=== PATIENT | female | born 1955 | race Caucasian/White ===

== ENCOUNTER → 2016-11-30 | Outpatient (REF) | payer BC ==
[~2016-11-30] MED LIST: ASPI81TA85 PO; CIPR-249 PO; CO Q30CA PO; COEN200C PO; DOCU10CA PO; FISH1000 PO; FLAX1200 PO; FLON0.054; FRUICAP PO; GLUC500C5 PO; HAIRTAB5 PO; META28.35 PO; MULTCAP PO; PERC5TAB12 PO; PROBCAP4 PO; RANI15TA PO; VAGI10TA PV; [UNRECOGNIZED DRUG - CODE] PO
== END ==
LOC: M LAB REF 12:19
PROVIDERS: ATTEND Internal Medicine
DX: E06.9 Thyroiditis, unspecified (principal)

== ENCOUNTER → 2016-12-06 | Outpatient (CLI) | payer BC ==
--- NOTE | 2016-12-07 15:31 | REP ---
NUCLEAR THYROID UPTAKE AND SCAN, 12/07/2016. Clinical history: Abnormal thyroid lab work. Hyperthyroid symptoms. History of thyroiditis in 2004. Comparison study 03/26 2005. Technique: The patient received 382 microcuries of I-123 as sodium iodide. 24 uptake values and scan were then performed. Findings: Activity of uptake is no different than the background activity on this scan. The 24 hour uptake measurement is 0.24%. Normal uptake values for 24 hours are 25 - 35%. Impression: 1. There is no uptake of iodine in the thyroid bed on either side. The appearance is nearly identical to the exam in 2005. That study also showed background and thyroid uptake without difference in appearance. In the absence of history of thyroidectomy, burned out thyroiditis must be suspected. 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 Signed by Derrell Berg MD 12/07/2016 07:06 P
== END ==
LOC: M RAD 12:35
PROVIDERS: ATTEND Internal Medicine
DX: E05.90 Thyrotoxicosis, unspecified without thyrotoxic crisis or storm (principal)

== ENCOUNTER → 2016-12-13 | Outpatient (REF) | payer BC ==
[2016-12-13 14:30] LABS: THYROID PEROXIDASE ANTIBODY < 28.0 U/ML (<60.0)
== END ==
LOC: M LAB REF 13:27
PROVIDERS: ATTEND Internal Medicine
DX: E05.90 Thyrotoxicosis, unspecified without thyrotoxic crisis or storm (principal); E06.9 Thyroiditis, unspecified

== ENCOUNTER → 2016-12-21 | Outpatient (REF) | payer BC | LOC: M LAB REF 13:32 | PROVIDERS: ATTEND Internal Medicine | DX: E05.90 Thyrotoxicosis, unspecified without thyrotoxic crisis or storm (principal) ==

== ENCOUNTER → 2017-02-01 | Outpatient (REF) | payer BC ==
[2017-02-01 16:51] LABS: FREE T4 0.77 NG/DL (0.76-1.46)
== END ==
LOC: M LABDRAW1 14:17
PROVIDERS: ATTEND Internal Medicine Endocrinology, Diabetes & Metabolism
DX: E06.1 Subacute thyroiditis (principal)

== ENCOUNTER → 2017-03-17 | Outpatient (REF) | payer BC ==
[2017-03-17 12:17] LABS: FREE T4 0.78 NG/DL (0.76-1.46)
== END ==
LOC: M LABDRAW1 10:09
PROVIDERS: ATTEND Internal Medicine Endocrinology, Diabetes & Metabolism
DX: E06.1 Subacute thyroiditis (principal)

== ENCOUNTER → 2017-03-18 | Outpatient (REF) | payer BC | LOC: M LAB REF 16:09 | PROVIDERS: ATTEND Physician Assistant | DX: R30.0 Dysuria (principal) ==

== ENCOUNTER → 2017-03-30 | Outpatient (REF) | payer BC ==
[2017-03-30 13:52] LABS: MICROSCOPIC EXAM PERFORMED; SQUAMOUS EPITHELIAL CELL URINE SMALL AMOUNT /hpf (SMALL AMT); WBC, URINE TNTC /hpf (0-3)
[2017-03-30 13:53] LABS: BACTERIA, URINE SMALL AMOUNT; HYALINE CAST, URINE NONE SEEN /lpf (0-1)
== END ==
LOC: M LAB REF 12:57
PROVIDERS: ATTEND Nurse Practitioner Adult Health
DX: N39.0 Urinary tract infection, site not specified (principal)

== ENCOUNTER → 2017-05-19 | Outpatient (REF) | payer BC ==
[2017-05-19 21:01] LABS: FREE T4 0.77 NG/DL (0.76-1.46)
== END ==
LOC: M LABDRAW1 18:42
DX: E06.1 Subacute thyroiditis (principal)
CPT/HCPCS: 84443

== ENCOUNTER → 2017-09-17 | Outpatient (REF) | payer BC | LOC: M LAB REF 13:35 | DX: R30.0 Dysuria (principal) | CPT/HCPCS: 87186 ==

== ENCOUNTER → 2017-09-26 | Outpatient (REF) | payer BC ==
[2017-09-26 18:58] LABS: FREE T4 0.76 NG/DL (0.76-1.46)
== END ==
LOC: M LABDRAW1 17:57
DX: E05.90 Thyrotoxicosis, unspecified without thyrotoxic crisis or storm (principal)
CPT/HCPCS: 84443

== ENCOUNTER → 2017-11-28 | Outpatient (REF) | payer BC ==
[2017-11-28 11:57] LABS: HEMATOCRIT 39.4 % (36.0-47.0); HEMOGLOBIN 12.9 g/dl (12.0-15.5); MEAN CORPUSCULAR HEMOGLOBIN 29.6 pg (27.0-33.0); MEAN CORPUSCULAR HGB CONC 32.7 g/dl (32.0-36.5); MEAN CORPUSCULAR VOLUME 90.4 fl (80.0-96.0); PLATELET COUNT, AUTOMATED 267 10^3/uL (150-450); RED BLOOD COUNT 4.36 10^6/uL (4.00-5.40); RED CELL DISTRIBUTION WIDTH 12.1 % (11.5-14.5); WHITE BLOOD COUNT 4.6 10^3/uL (4.0-10.0)
[2017-11-28 12:32] LABS: ANION GAP 6 MEQ/L (8-16); BLOOD UREA NITROGEN 14 MG/DL (7-18); CALCIUM LEVEL 9.4 MG/DL (8.8-10.2); CARBON DIOXIDE LEVEL 30 MEQ/L (21-32); CHLORIDE LEVEL 108 MEQ/L (98-107); CHOLESTEROL LEVEL 194 MG/DL (<200); CHOLESTEROL RISK RATIO 2.771 (<5); CREATININE FOR GFR 0.79 MG/DL (0.55-1.30); FREE T4 0.73 NG/DL (0.76-1.46); GLOMERULAR FILTRATION RATE > 60.0 (>45); GLUCOSE, FASTING 80 MG/DL (70-100); HDL CHOLESTEROL 70 MG/DL (>40); LDL CHOLESTEROL 104.8 MG/DL (<100); NON-HDL-C 124 MG/DL; POTASSIUM SERUM 4.5 MEQ/L (3.5-5.1); SODIUM LEVEL 144 MEQ/L (136-145); TRIGLYCERIDES LEVEL 96 MG/DL (<150)
== END ==
LOC: M LABDRAW1 11:42
DX: E05.90 Thyrotoxicosis, unspecified without thyrotoxic crisis or storm (principal); E78.1 Pure hyperglyceridemia
CPT/HCPCS: 84443

== ENCOUNTER → 2018-02-17 | Outpatient (REF) | payer BC ==
[2018-02-17 17:53] LABS: FREE T4 0.87 NG/DL (0.76-1.46)
== END ==
LOC: M LABDRAW1 16:58
DX: E06.9 Thyroiditis, unspecified (principal)
CPT/HCPCS: 84443

== ENCOUNTER → 2018-03-06 | Outpatient (REF) | payer BC | LOC: M LAB REF 03-07 18:40 | DX: N39.0 Urinary tract infection, site not specified (principal) ==

== ENCOUNTER → 2018-06-01 | Outpatient (REF) | payer BC ==
[2018-06-01 14:12] LABS: FREE T4 0.78 NG/DL (0.76-1.46); THYROID STIMULATING HORMONE 2.42 uIU/ML (0.358-3.740)
== END ==
LOC: M LABDRAW1 13:15
PROVIDERS: ATTEND Internal Medicine
DX: R63.4 Abnormal weight loss (principal)

== ENCOUNTER 2018-08-31 07:22 | Day surgery (SDC) | payer BC ==
[~2018-08-31] VITALS: Ht 160 cm; Wt 55.2 kg
[~2018-08-31 07:22] MED LIST changes: +BALANCED SALT IRRIGATION SOLUTION 500ML BAG (FOR OR EYE MACHINE) As Ordered ONE; +CEFUROXIME 1MG/0.1ML INTRACAMERAL INJ As Ordered ONE; +CHRO1000 PO; +CIDA500T2 PO; +CLAR10CA3 PO; +CO Q1CAP2 PO; +CVS500CA5 PO; +DUOVISC (0.50ML VISCOAT/0.55ML PROVISC) OPHTH KIT As Ordered ONE; +FLAX1CAP5 PO; +FLON1SPR; +LIDOCAINE 0.75%/EPINEPHRINE 0.025% IN BSS 1ML SYR INTRACAMERAL (OR ONLY) As Ordered ONE; +OFLOXACIN 0.3 % (OCUFLOX) OPTH SOL 5ML OS ONE; +PHENYLEPHRINE 2.5% OPHTH SOL 2ML OS ONE; +POVIDONE-IODINE 5% OPHTH PREP SOL 30ML As Ordered ONE; +PROPARACAINE 0.5% OPHTH SOL 15ML OS ONE; +RA T500C2 PO; +TROPICAMIDE 1% OPHTH SOLN 2ML OS ONE
[2018-08-31] MEDS ORDERED: fentaNYL 100 MCG/2 ML INJECTION (J3010) As Ordered ONE (07:37)
[2018-08-31] MEDS ORDERED: MIDAZOLAM INJ 2 MG/2 ML VIAL (J2250) As Ordered ONE (07:37)
[2018-08-31 10:35] VITALS: BP 119/70
--- NOTE | 2018-09-04 17:13 | RO ---
DATE OF PROCEDURE: 08/31/2018 PREPROCEDURE DIAGNOSIS: Cataract left eye, status post pars plana vitrectomy. POSTPROCEDURE DIAGNOSIS: Cataract left eye, status post pars plana vitrectomy. PROCEDURE PERFORMED: 1. Cataract extraction with use of phacoemulsification, and placement of intraocular lens, SV25T0, 20.0 D, left eye, with use of intraoperative aberrometry. SURGEON: Dr. Arjun Roe VEH[employer]LE [employer] CONVERTER: ANESTHESIA: Local with monitored anesthesia care (MAC). COMPLICATIONS: None. POSTOPERATIVE CONDITION: Stable. INDICATION FOR SURGERY: 1. Blurred vision affecting patient's activities of daily living. DESCRIPTION OF PROCEDURE: The patient was seen in the preoperative area and properly identified. The correct operative eye was identified and marked. The patient received topical anesthetic, antibiotics, and topical dilating drops. The patient was then transferred to the operating room. The correct side was re-identified and a time-out was performed. The eye was prepped and draped in a sterile fashion. The eyelids were isolated with Tegaderm tape, and the lids were held open with an adjustable speculum. A 1.0 mm paracentesis incision was made. Intraocular preservative-free Shugarcaine was then injected into the anterior chamber through the paracentesis. Using a 2.4 mm sharp-tipped keratome, the anterior chamber was entered via a temporal clear corneal incision. A continuous curvilinear capsulorrhexis was created with Utrata forceps. Hydrodissection was performed with balanced salt solution (BSS) on a blunt cannula until the nucleus was able to rotate freely. The crystalline lens was phacoemulsified and aspirated. Irrigation/aspiration was used to remove the cortical material. Cohesive viscoelastic was placed into the capsular bag to deepen it. The Optiwave Refractive Analysis (ORA) device was turned on, two sets of measurements were obtained, and the implant power was confirmed. The implant was placed into the capsular bag and allowed to unfold. Placement was confirmed by visualizing the anterior capsulorrhexis. Irrigation/aspiration was used to remove the viscoelastic. The clear corneal incision was hydrated with BSS on a blunt cannula. The lens was well positioned. The incisions were then tested for leaks and found to be negative. The eye was then palpated for appropriate pressure and adjusted accordingly with BSS. The eyelid speculum was then carefully removed. A shield was placed over the eye. The patient tolerated the procedure well and was discharged to the recovery unit in a stable condition.
== END 2018-08-31 10:42 | disposition home or self-care (01) ==
LOC: M SDC 07:22
PROVIDERS: ATTEND Ophthalmology
DX: H25.12 Age-related nuclear cataract, left eye (principal); K21.9 Gastro-esophageal reflux disease without esophagitis; K59.00 Constipation, unspecified; Z79.899 Other long term (current) drug therapy
CPT/HCPCS: 66984; 92015; J2250; J3010; L8699

== ENCOUNTER → 2018-12-08 | Outpatient (REF) | payer BC ==
[~2018-12-08] MED LIST changes: -BALANCED SALT IRRIGATION SOLUTION 500ML BAG (FOR OR EYE MACHINE) As Ordered ONE; -CEFUROXIME 1MG/0.1ML INTRACAMERAL INJ As Ordered ONE; -DUOVISC (0.50ML VISCOAT/0.55ML PROVISC) OPHTH KIT As Ordered ONE; -LIDOCAINE 0.75%/EPINEPHRINE 0.025% IN BSS 1ML SYR INTRACAMERAL (OR ONLY) As Ordered ONE; -OFLOXACIN 0.3 % (OCUFLOX) OPTH SOL 5ML OS ONE; -PHENYLEPHRINE 2.5% OPHTH SOL 2ML OS ONE; -POVIDONE-IODINE 5% OPHTH PREP SOL 30ML As Ordered ONE; -PROPARACAINE 0.5% OPHTH SOL 15ML OS ONE; -TROPICAMIDE 1% OPHTH SOLN 2ML OS ONE
[2018-12-08 13:53] LABS: BACTERIA, URINE AUTO NEGATIVE (NEGATIVE); RBC, URINE AUTO 2 /HPF (0-3); SQUAMOUS EPITHELIAL CELL UR AU 0 /HPF (0-6); WBC, URINE AUTO 0 /HPF (0-3)
== END ==
LOC: M LAB REF 12:23
PROVIDERS: ATTEND Internal Medicine
DX: R31.9 Hematuria, unspecified (principal)

== ENCOUNTER → 2020-04-07 | Outpatient (REF) | payer BC ==
[~2020-04-07] MED LIST changes: -ASPI81TA85 PO; +ASPI81TA86 PO; -COEN200C PO; +RA C200C2 PO
== END ==
LOC: M LAB REF 09:42
PROVIDERS: ATTEND Nurse Practitioner Family
DX: R30.0 Dysuria (principal)

== ENCOUNTER → 2020-10-20 | Outpatient (REF) | payer BC ==
[~2020-10-20] MED LIST changes: +PRESCAP PO
== END ==
LOC: M LAB REF 15:52
PROVIDERS: ATTEND Surgery
DX: L72.0 Epidermal cyst (principal)

== ENCOUNTER → 2020-10-22 | Outpatient (CLI) | payer BC | LOC: M LABSMTC 11:44 | PROVIDERS: ATTEND Anesthesiology | DX: Z01.812 Encounter for preprocedural laboratory examination (principal); Z20.822 Contact with and (suspected) exposure to COVID-19 ==

== ENCOUNTER 2020-10-27 06:06 | Day surgery (SDC) | payer BC ==
[~2020-10-27] VITALS: Ht 160 cm; Wt 54.9 kg
[~2020-10-27 06:06] MED LIST changes: +UNRESOLVED CLARIFICATION ENTRY XX SCH
[2020-10-27] MEDS ORDERED: DUOVISC (0.50ML VISCOAT/0.55ML PROVISC) OPHTH KIT As Ordered ONE (06:40)
[2020-10-27] MEDS ORDERED: POVIDONE-IODINE 5% OPHTH PREP SOL 30ML As Ordered ONE (06:40)
[2020-10-27] MEDS ORDERED: CEFUROXIME 1MG/0.1ML INTRACAMERAL INJ As Ordered ONE (06:40)
[2020-10-27] MEDS ORDERED: PHENYLEPHRINE 2.5% OPHTH SOL 2ML OD ONE (07:00)
[2020-10-27] MEDS ORDERED: PROPARACAINE 0.5% OPHTH SOL 15ML OD ONE (07:00)
[2020-10-27] MEDS ORDERED: TROPICAMIDE 1% OPHTH SOLN 2ML OD ONE (07:00)
[2020-10-27] MEDS ORDERED: OFLOXACIN 0.3 % (OCUFLOX) OPTH SOL 5ML OD ONE (07:00)
[2020-10-27] MEDS ORDERED: fentaNYL 100 MCG/2 ML INJECTION (J3010) As Ordered ONE (07:19)
[2020-10-27] MEDS ORDERED: MIDAZOLAM INJ 2MG/2ML VIAL (J2250 PER 1MG) As Ordered ONE (07:19)
[2020-10-27] MEDS ORDERED: BSS IRR 500ML/OMIDRIA 4ML IRR BAG (OR ONLY) As Ordered ONE (07:28)
[2020-10-27] MEDS ORDERED: BALANCED SALT IRRIGATION SOLUTION 500ML BAG (FOR OR EYE MACHINE) As Ordered ONE (07:33)
[2020-10-27] MEDS ORDERED: LIDOCAINE PRES-FREE 2% 10ML AMP As Ordered ONE (07:37)
[2020-10-27 08:35] VITALS: BP 124/69
--- NOTE | 2020-10-29 15:35 | RO ---
OPERATIVE NOTE DATE OF OPERATION: 10/27/2020 PREOPERATIVE DIAGNOSIS: 1. Visually significant dense nuclear sclerotic cataract, right eye. POSTOPERATIVE DIAGNOSIS: 1. Visually significant dense nuclear sclerotic cataract, right eye. PROCEDURE: 1. Extracapsular cataract extraction with insertion of intraocular lens, TFNT00 19.5 D, right eye, with use of intraoperative aberrometry. SURGEON: Arjun Roe DO ANESTHESIA: Local (Omidria with MAC) COMPLICATIONS: None POSTOPERATIVE CONDITION: Stable INDICATIONS FOR SURGERY: 1. Blurred vision affecting patient's activities of daily living. DESCRIPTION OF PROCEDURE: The patient was seen in the preoperative area and properly identified. The correct operative eye was identified and marked. The patient received topical anesthetic, antibiotics, and topical dilating drops. The patient was then transferred to the operating room. The correct side was re-identified and a time-out was performed. The eye was prepped and draped in a sterile fashion. The eyelids were isolated with Tegaderm tape and the lids were held open with an adjustable speculum. A 1.0mm paracentesis incision was made. Omidria was then injected into the anterior chamber. Viscoelastic was then injected into the anterior chamber through the paracentesis. Using a 2.4mm sharp-tipped keratome, the anterior chamber was entered via a temporal clear cornea incision. A continuous curvilinear capsulorrhexis was created with Utrata forceps. Hydrodissection was performed with BSS on a blunt cannula until the nucleus was able to rotate freely. The crystalline lens was phacoemulsified and aspirated. Irrigation/aspiration was used to remove the cortical material Cohesive viscoelastic was placed into the capsular bag to deepen it. The implant was placed into the capsular bag and allowed to unfold. Placement was confirmed by visualizing the anterior capsulorrhexis. Irrigation/aspiration was used to remove the viscoelastic. The clear corneal incision was hydrated with BSS on a blunt cannula. The lens was well positioned. Intracameral antibiotic was injected into the anterior chamber. The incisions were then tested for leaks and found to be negative. The eye was then palpated for appropriate pressure and adjusted accordingly with BSS. The eyelid speculum was then carefully removed. A shield was placed over the eye. The patient tolerated the procedure well and was discharge to the recovery unit in a stable condition.
== END 2020-10-27 08:35 | disposition home or self-care (01) ==
LOC: M SDC 06:06
PROVIDERS: ATTEND Ophthalmology
DX: H25.11 Age-related nuclear cataract, right eye (principal); K21.9 Gastro-esophageal reflux disease without esophagitis; Z87.442 Personal history of urinary calculi; Z86.39 Personal history of other endocrine, nutritional and metabolic disease; Z88.5 Allergy status to narcotic agent; Z88.2 Allergy status to sulfonamides; Z88.8 Allergy status to other drugs, medicaments and biological substances; Z79.899 Other long term (current) drug therapy
CPT/HCPCS: 66984; J1097; J2250; J3010

== ENCOUNTER → 2020-12-17 | Outpatient (REF) | payer BC ==
[~2020-12-17] MED LIST changes: -UNRESOLVED CLARIFICATION ENTRY XX SCH
[2020-12-17 11:55] LABS: BACTERIA, URINE AUTO NEGATIVE (NEGATIVE); RBC, URINE AUTO 4 /HPF (0-3); SQUAMOUS EPITHELIAL CELL UR AU 0 /HPF (0-6); WBC, URINE AUTO 0 /HPF (0-3)
== END ==
LOC: M LAB REF 11:16
PROVIDERS: ATTEND Internal Medicine
DX: R31.9 Hematuria, unspecified (principal)

== ENCOUNTER → 2020-12-24 | Outpatient (REF) | payer BC | LOC: M LAB REF 11:18 | PROVIDERS: ATTEND Internal Medicine | DX: R31.9 Hematuria, unspecified (principal) ==

== ENCOUNTER → 2020-12-31 | Outpatient (REF) | payer BC ==
[2020-12-31 12:04] LABS: APPEARANCE, URINE HAZY (CLEAR); BACTERIA, URINE AUTO NEGATIVE (NEGATIVE); BILIRUBIN, URINE AUTO NEGATIVE (NEGATIVE); BLOOD, URINE BLOOD 1+ (NEGATIVE); COLOR, URINE AMBER (YELLOW); GLUCOSE, URINE (UA) AUTO NEGATIVE (NEGATIVE); KETONE, URINE AUTO NEGATIVE (NEGATIVE); LEUKOCYTE ESTERASE, URINE AUTO NEGATIVE (NEGATIVE); NITRITE, URINE AUTO NEGATIVE (NEGATIVE); PROTEIN, URINE AUTO NEGATIVE (NEGATIVE); RBC, URINE AUTO 5 /HPF (0-3); SQUAMOUS EPITHELIAL CELL UR AU 0 /HPF (0-6); UROBILINOGEN, URINE AUTO 0.2 mg/dL (0.0-2.0); WBC, URINE AUTO 0 /HPF (0-3)
== END ==
LOC: M LAB REF 11:24
PROVIDERS: ATTEND Internal Medicine
DX: R31.9 Hematuria, unspecified (principal)

== ENCOUNTER → 2021-01-08 | Outpatient (REF) | payer BC ==
[2021-01-08 11:49] LABS: APPEARANCE, URINE HAZY (CLEAR); BACTERIA, URINE AUTO NEGATIVE (NEGATIVE); BILIRUBIN, URINE AUTO NEGATIVE (NEGATIVE); BLOOD, URINE BLOOD NEGATIVE (NEGATIVE); COLOR, URINE YELLOW (YELLOW); GLUCOSE, URINE (UA) AUTO NEGATIVE (NEGATIVE); KETONE, URINE AUTO NEGATIVE (NEGATIVE); LEUKOCYTE ESTERASE, URINE AUTO NEGATIVE (NEGATIVE); NITRITE, URINE AUTO NEGATIVE (NEGATIVE); PROTEIN, URINE AUTO NEGATIVE (NEGATIVE); RBC, URINE AUTO 2 /HPF (0-3); SPECIFIC GRAVITY URINE AUTO 1.005 (1.002-1.035); SQUAMOUS EPITHELIAL CELL UR AU 0 /HPF (0-6); UROBILINOGEN, URINE AUTO 0.2 mg/dL (0.0-2.0); WBC, URINE AUTO 0 /HPF (0-3)
== END ==
LOC: M LAB REF 11:14
PROVIDERS: ATTEND Internal Medicine
DX: R31.9 Hematuria, unspecified (principal)

== ENCOUNTER → 2021-01-18 | Outpatient (REF) | payer BC | LOC: M WUC 17:37 | PROVIDERS: ATTEND Physician Assistant | DX: N39.0 Urinary tract infection, site not specified (principal) ==

== ENCOUNTER → 2021-01-28 | Outpatient (CLI) | payer BC ==
[~2021-01-28] MED LIST changes: +ISOVUE-370 76% 100ML VIAL As Ordered ONE
--- NOTE | 2021-01-28 17:00 | REP ---
INDICATION: HEMATURIA. COMPARISON: 03/02/2014. TECHNIQUE: CT abdomen and pelvis performed without IV contrast. CT abdomen and pelvis performed with IV contrast as well, following intravenous administration of 100 cc of Isovue 370. Sagittal, coronal and 3D MIP reconstruction images are performed. FINDINGS: Lung bases: Unremarkable. Liver: Normal Gallbladder: Unremarkable. Spleen: Normal. Adrenals: Normal. Pancreas: Normal. Kidneys: There is a 1 cm cyst in the lower right kidney, on the prior study it measured 6 mm. No nephrolithiasis. No suspicious renal mass. Small and large bowel: Unremarkable. Free fluid: None. Adenopathy: None. Appendix: Not inflamed. Osseous structures: There are degenerative changes of the spine without compression deformity. Pelvis: No mass. Prior hysterectomy. No bladder wall thickening or mass identified. No bladder calculus. IMPRESSION: No renal, ureteral or bladder calculus. No hydroureteronephrosis. 1 cm cyst lower right kidney. Otherwise no evidence of urinary tract abnormality. <Electronically signed by Luis Miguel Basilio > 01/28/21 [id number]
== END ==
LOC: M RAD 15:28
PROVIDERS: ATTEND Internal Medicine
DX: R31.9 Hematuria, unspecified (principal); K76.89 Other specified diseases of liver
CPT/HCPCS: 74178; Q9967

== ENCOUNTER → 2021-02-26 | Outpatient (REF) | payer BC ==
[~2021-02-26] MED LIST changes: -ISOVUE-370 76% 100ML VIAL As Ordered ONE
== END ==
LOC: M WUC 09:26
PROVIDERS: ATTEND Physician Assistant
DX: N39.0 Urinary tract infection, site not specified (principal)

== ENCOUNTER → 2021-04-10 | Outpatient (CLI) | payer BC ==
--- NOTE | 2021-04-10 17:23 | REPMRS ---
Patient History The patient states she had a clinical breast exam in 12/2020. Patient is postmenopausal. No known family history of cancer. US Guided Breast Biopsy of the right breast, 2003. No Hormone Replacement Therapy Tomosynthesis is performed. Volpara breast density is b. [facility] lifetime risk of breast cancer 3.9%. Patient states no breast complaints today. Patient has signed MRS History Sheet. [employer] vaccines, 12/08/20, 12/29/20. Digital Woman Screen Mammo: April 10, 2021 - Exam #: [id number] Bilateral CC and MLO view(s) were taken. Technologist: Margoth Heredia, Technologist Prior study comparison: November 30, 2019, bilateral digital mammo screening bilat, performed at [facility]. October 19, 2018, bilateral digital mammo screening bilat, performed at [facility]. FINDINGS: The breast tissue is heterogeneously dense. This may lower the sensitivity of mammography. There has been no change in the appearance of the mammogram from the prior studies. There is a moderate amount of residual fibroglandular tissue which is fairly symmetric. There is no interval development of dominant mass, areas of architectural distortion, or clustered microcalcification typical of malignancy. Assessment: BI-RADS/ACR category 1 mammogram. Negative Mammogram. Recommendation Routine screening mammogram in 1 year (for women over age 40). This mammogram was interpreted with the aid of an FDA-approved computer-aided dectection system. Electronically Signed By: Luis Miguel Basilio MD 04/10/21 [id number]
== END ==
LOC: M WHC 15:15
PROVIDERS: ATTEND Internal Medicine
DX: Z12.31 Encounter for screening mammogram for malignant neoplasm of breast (principal); Z78.0 Asymptomatic menopausal state; Z86.018 Personal history of other benign neoplasm

== ENCOUNTER 2021-11-28 15:23 | Emergency (ER) | payer MEDICARE ==
[~2021-11-28] VITALS: Ht 160 cm; Wt 54.1 kg
[2021-11-28 15:23] VITALS: BP 141/84
[2021-11-28] MEDS ORDERED: NORCO, ANEXSIA 5/325MG TABLET (HYDROcodone/ACETAMINOPHEN) PO ONE (16:40)
[2021-11-28] MEDS ORDERED: HYDR-3713 PO ×6 (17:10→18:52)
== END 2021-11-28 17:29 | disposition home or self-care (01) ==
LOC: M ED 15:23
DX: S82.61XA Displaced fracture of lateral malleolus of right fibula, initial encounter for closed fracture (principal); X50.9XXA Other and unspecified overexertion or strenuous movements or postures, initial encounter; Y92.018 Other place in single-family (private) house as the place of occurrence of the external cause; Z88.2 Allergy status to sulfonamides; Z88.5 Allergy status to narcotic agent; Z88.8 Allergy status to other drugs, medicaments and biological substances

== ENCOUNTER → 2021-12-01 | Outpatient (CLI) | payer MEDICARE ==
[~2021-12-01] MED LIST changes: +HYDR-3713 PO
== END ==
LOC: M SOG 09:16
PROVIDERS: ATTEND Physician Assistant
DX: S82.831A Other fracture of upper and lower end of right fibula, initial encounter for closed fracture (principal)

== ENCOUNTER → 2021-12-08 | Outpatient (CLI) | payer MEDICARE | LOC: M SOG 09:01 | PROVIDERS: ATTEND Physician Assistant | DX: S82.831A Other fracture of upper and lower end of right fibula, initial encounter for closed fracture (principal); X58.XXXA Exposure to other specified factors, initial encounter; Y92.89 Other specified places as the place of occurrence of the external cause ==

== ENCOUNTER → 2021-12-22 | Outpatient (CLI) | payer MEDICARE | LOC: M SOG 08:05 | PROVIDERS: ATTEND Physician Assistant | DX: S82.831D Other fracture of upper and lower end of right fibula, subsequent encounter for closed fracture with routine healing (principal) ==

== ENCOUNTER → 2022-01-15 | Outpatient (CLI) | payer MEDICARE | LOC: M SOG 08:22 | PROVIDERS: ATTEND Orthopaedic Surgery Hand Surgery | DX: S82.61XD Displaced fracture of lateral malleolus of right fibula, subsequent encounter for closed fracture with routine healing (principal) ==

== ENCOUNTER 2022-02-03 07:00 | Outpatient (RCR) | payer MEDICARE | END 2022-02-05 | LOC: M PT 07:00 | PROVIDERS: ATTEND Orthopaedic Surgery Hand Surgery | DX: S82.61XD Displaced fracture of lateral malleolus of right fibula, subsequent encounter for closed fracture with routine healing (principal) ==

== ENCOUNTER → 2022-02-15 | Outpatient (REF) | payer MEDICARE | LOC: M LAB REF 12:10 | PROVIDERS: ATTEND Physician Assistant | DX: N39.0 Urinary tract infection, site not specified (principal) ==

== ENCOUNTER → 2022-02-15 | Outpatient (CLI) | payer MEDICARE | LOC: M SOG 12:57 | PROVIDERS: ATTEND Orthopaedic Surgery Hand Surgery | DX: S82.61XD Displaced fracture of lateral malleolus of right fibula, subsequent encounter for closed fracture with routine healing (principal) ==

== ENCOUNTER 2022-02-16 08:28 | Outpatient (RCR) | payer MEDICARE | END 2022-03-08 | LOC: M PT 08:28 | PROVIDERS: ATTEND Orthopaedic Surgery Hand Surgery | DX: S82.61XD Displaced fracture of lateral malleolus of right fibula, subsequent encounter for closed fracture with routine healing (principal) ==

== ENCOUNTER → 2022-04-20 | Outpatient (CLI) | payer MEDICARE | LOC: M SOG 09:54 | PROVIDERS: ATTEND Orthopaedic Surgery Hand Surgery | DX: M25.531 Pain in right wrist (principal) ==

== ENCOUNTER → 2022-05-13 | Outpatient (REF) | payer MEDICARE | LOC: M LAB REF 12:17 | PROVIDERS: ATTEND Student in an Organized Health Care Education/Training Program | DX: R30.0 Dysuria (principal) ==

== ENCOUNTER → 2022-06-07 | Outpatient (CLI) | payer MEDICARE ==
[~2022-06-07] MED LIST changes: +COQ1200C3 PO; +HEAL1TAB6 PO; +MULT-90 PO; +OMEGCAP4 PO; +OMEGCAP9 PO; +ZYRT10TA12 PO
== END ==
LOC: M WHC 09:15
PROVIDERS: ATTEND Internal Medicine
DX: Z12.31 Encounter for screening mammogram for malignant neoplasm of breast (principal); M85.89 Other specified disorders of bone density and structure, multiple sites; M81.0 Age-related osteoporosis without current pathological fracture

== ENCOUNTER → 2022-06-07 | Outpatient (CLI) | payer MEDICARE | LOC: M LABSMTC 10:23 | PROVIDERS: ATTEND Anesthesiology | DX: Z01.812 Encounter for preprocedural laboratory examination (principal); Z11.52 Encounter for screening for COVID-19; Z12.31 Encounter for screening mammogram for malignant neoplasm of breast; Z13.820 Encounter for screening for osteoporosis; M85.851 Other specified disorders of bone density and structure, right thigh; M85.852 Other specified disorders of bone density and structure, left thigh ==

== ENCOUNTER 2022-06-09 11:06 | Day surgery (SDC) | payer MEDICARE ==
[~2022-06-09] VITALS: Ht 160 cm; Wt 55.7 kg
[2022-06-09] MEDS ORDERED: fentaNYL 100 MCG/2 ML INJECTION As Ordered ONE (12:49)
[2022-06-09] MEDS ORDERED: ACETAMINOPHEN 1000MG 100ML IV BAG As Ordered ONE (12:49)
[2022-06-09] MEDS ORDERED: LIDOCAINE 2% 100MG/5ML SDV (FOR ANES.) As Ordered ONE (12:50)
[2022-06-09] MEDS ORDERED: ONDANSETRON 4MG 2ML VIAL As Ordered ONE (12:50)
[2022-06-09] MEDS ORDERED: propofoL 200 MG/20 ML VIAL As Ordered ONE (12:50)
[2022-06-09] MEDS ORDERED: BUPIVACAINE HCL 0.25% 30ML VIAL As Ordered ONE (13:43)
[2022-06-09] MEDS ORDERED: BACITRACIN OINTMENT 30GM TUBE As Ordered ONE (13:43)
[2022-06-09] MEDS ORDERED: fentaNYL 100 MCG/2 ML INJECTION IV PRN (14:35)
[2022-06-09] MEDS ORDERED: ONDANSETRON 4MG 2ML VIAL IV PRN (14:35)
[2022-06-09] MEDS ORDERED: oxyCODONE 5MG TAB PO PRN (14:35)
[2022-06-09] MEDS ORDERED: LR 1,000 ML IV SCH (14:35)
[2022-06-09 16:01] VITALS: BP 141/79
== END 2022-06-09 16:11 | disposition home or self-care (01) ==
LOC: M SDC 11:06
PROVIDERS: ATTEND Orthopaedic Surgery Hand Surgery
DX: G56.01 Carpal tunnel syndrome, right upper limb (principal); M81.0 Age-related osteoporosis without current pathological fracture; M19.90 Unspecified osteoarthritis, unspecified site; K21.9 Gastro-esophageal reflux disease without esophagitis; Z88.5 Allergy status to narcotic agent; Z88.2 Allergy status to sulfonamides; Z88.8 Allergy status to other drugs, medicaments and biological substances
CPT/HCPCS: 29848; J0131; J1100; J2405; J3010

== ENCOUNTER → 2022-10-17 | Outpatient (REF) | payer MEDICARE | LOC: M LAB REF 18:05 | PROVIDERS: ATTEND Internal Medicine | DX: N39.0 Urinary tract infection, site not specified (principal) ==

== ENCOUNTER → 2023-04-15 | Outpatient (CLI) | payer MEDICARE | LOC: M WUC 11:24 | PROVIDERS: ATTEND Internal Medicine | DX: R51.9 Headache, unspecified (principal) ==

== ENCOUNTER → 2023-05-18 | Outpatient (CLI) | payer MEDICARE | LOC: M RAD 13:37 | PROVIDERS: ATTEND Physician Assistant Medical | DX: J32.9 Chronic sinusitis, unspecified (principal) ==

== ENCOUNTER → 2023-07-28 | Outpatient (CLI) | payer MEDICARE | LOC: M WHC 14:25 | PROVIDERS: ATTEND Internal Medicine | DX: Z12.31 Encounter for screening mammogram for malignant neoplasm of breast (principal) ==

== ENCOUNTER → 2023-11-23 | Outpatient (REF) | payer MEDICARE ==
[~2023-11-23] MED LIST changes: +BACI1TAB20 PO; +CRAN500C11 PO; -CVS500CA5 PO
[2023-11-23 13:27] LABS: C REACTIVE PROTEIN QUANTITATIV 0.8 MG/DL (<1.0)
== END ==
LOC: M LAB REF 12:25
PROVIDERS: ATTEND Internal Medicine
DX: R19.7 Diarrhea, unspecified (principal); R10.9 Unspecified abdominal pain

== ENCOUNTER → 2023-11-24 | Outpatient (REF) | payer MEDICARE ==
[~2023-11-24] MED LIST changes: -BACI1TAB20 PO
== END ==
LOC: M LAB REF 15:32
PROVIDERS: ATTEND Internal Medicine
DX: R19.7 Diarrhea, unspecified (principal)

== ENCOUNTER 2023-12-02 09:15 | Day surgery (SDC) | payer MEDICARE ==
[~2023-12-02] VITALS: Ht 160 cm; Wt 53.7 kg
[~2023-12-02 09:15] MED LIST changes: +BACI1TAB20 PO; +NS 1,000 ML IV ONE; +propofoL 200 MG/20 ML VIAL As Ordered ONE
[2023-12-02] MEDS ORDERED: LIDOCAINE 2% 100MG/5ML SDV (FOR ANES.) As Ordered ONE (10:10)
[2023-12-02 10:48] VITALS: TEMP 98.4
[2023-12-02 11:15] VITALS: BP 127/75; O2SAT 99
== END 2023-12-02 11:23 | disposition home or self-care (01) ==
LOC: M OPP 09:15
PROVIDERS: ATTEND Surgery
DX: K63.5 Polyp of colon (principal); R19.7 Diarrhea, unspecified; Z79.1 Long term (current) use of non-steroidal anti-inflammatories (NSAID); Z79.818 Long term (current) use of other agents affecting estrogen receptors and estrogen levels; Z79.899 Other long term (current) drug therapy; Z88.2 Allergy status to sulfonamides; Z88.5 Allergy status to narcotic agent; Z88.6 Allergy status to analgesic agent

== ENCOUNTER → 2023-12-06 | Outpatient (CLI) | payer MEDICARE ==
[~2023-12-06] MED LIST changes: -NS 1,000 ML IV ONE; -propofoL 200 MG/20 ML VIAL As Ordered ONE
== END ==
LOC: M WUC 09:07
PROVIDERS: ATTEND Physician Assistant
DX: S63.622A Sprain of interphalangeal joint of left thumb, initial encounter (principal); X58.XXXA Exposure to other specified factors, initial encounter; Y92.9 Unspecified place or not applicable; Y93.9 Activity, unspecified; Y99.9 Unspecified external cause status

== ENCOUNTER → 2024-01-04 | Outpatient (CLI) | payer MEDICARE ==
[~2024-01-04] MED LIST changes: +GASTROGRAFIN SOLUTION 30ML ONE; +ISOVUE-370 76% 100ML VIAL ONE
== END ==
LOC: M PLAIMG 07:56
PROVIDERS: ATTEND Internal Medicine
DX: N28.1 Cyst of kidney, acquired (principal); R10.9 Unspecified abdominal pain
CPT/HCPCS: 74178; Q9963; Q9967

== ENCOUNTER → 2024-01-25 | Outpatient (REF) | payer MEDICARE ==
[~2024-01-25] MED LIST changes: -GASTROGRAFIN SOLUTION 30ML ONE; -ISOVUE-370 76% 100ML VIAL ONE
== END ==
LOC: M LAB REF 16:14
PROVIDERS: ATTEND Internal Medicine
DX: R10.2 Pelvic and perineal pain (principal); R31.9 Hematuria, unspecified

== ENCOUNTER → 2024-01-30 | Outpatient (REF) | payer MEDICARE ==
[2024-01-30 16:38] LABS: APPEARANCE, URINE CLEAR (CLEAR); BACTERIA, URINE AUTO NEGATIVE (NEGATIVE); BILIRUBIN, URINE AUTO NEGATIVE (NEGATIVE); BLOOD, URINE BLOOD NEGATIVE (NEGATIVE); COLOR, URINE STRAW (YELLOW); GLUCOSE, URINE (UA) AUTO NEGATIVE (NEGATIVE); KETONE, URINE AUTO NEGATIVE (NEGATIVE); LEUKOCYTE ESTERASE, URINE AUTO NEGATIVE (NEGATIVE); NITRITE, URINE AUTO NEGATIVE (NEGATIVE); PROTEIN, URINE AUTO NEGATIVE (NEGATIVE); RBC, URINE AUTO 0 /HPF (0-3); SPECIFIC GRAVITY URINE AUTO 1.003 (1.002-1.035); SQUAMOUS EPITHELIAL CELL UR AU 0 /HPF (0-6); UROBILINOGEN, URINE AUTO 0.2 mg/dL (0.0-2.0); WBC, URINE AUTO 0 /HPF (0-3)
== END ==
LOC: M LAB REF 16:19
PROVIDERS: ATTEND Internal Medicine
DX: R31.9 Hematuria, unspecified (principal)

== ENCOUNTER → 2024-06-26 | Outpatient (REF) | payer MEDICARE ==
[~2024-06-26] MED LIST changes: -CRAN500C11 PO; +CVS500CA5 PO
== END ==
LOC: M LAB REF 12:09
PROVIDERS: ATTEND Internal Medicine
DX: Z82.49 Family history of ischemic heart disease and other diseases of the circulatory system (principal); Z82.3 Family history of stroke

== ENCOUNTER → 2024-08-06 | Outpatient (CLI) | payer MEDICARE | LOC: M WHC 08:49 | PROVIDERS: ATTEND Internal Medicine | DX: Z12.31 Encounter for screening mammogram for malignant neoplasm of breast (principal); M85.89 Other specified disorders of bone density and structure, multiple sites; R92.323 Mammographic fibroglandular density, bilateral breasts ==